=== PATIENT | female | born 1980 ===

== ENCOUNTER 2024-05-13 09:05 | Day surgery (SDC) | payer OTHER ==
[2024-05-01 13:53] LABS: HEMATOCRIT 40.1 % (36.0-45.00); HEMOGLOBIN 13.5 g/dL (12.0-15.00); MEAN CELL VOLUME 83.7 fL (80.00-100.00); MEAN CORPUSCULAR HEMOGLOBIN 28.3 pg (27.00-32.0); MEAN CORPUSCULAR HGB CONC 33.8 g/dl (32.0-36.0); PLATELET COUNT 254 K/uL (150-450); RED BLOOD COUNT 4.78 M/uL (4.00-6.00)
[2024-05-01 14:24] LABS: INR 1.01; PARTIAL THROMBOPLASTIN TIME 30.7 SECONDS (22.0-34.0)
[2024-05-01 14:26] LABS: ALBUMIN 4.2 gm/dL (3.4-5.0); BILIRUBIN TOTAL 0.89 mg/dL (0.3-1.2); CALCIUM 9.3 mg/dL (8.5-10.1); CREATININE SERUM 0.56 mg/dL (0.55-1.02); GFR 117.6; GLOBULINA 3.2 G/DL (2.4-3.5); POTASSIUM 3.96 mEq/L (3.5-5.1); TOTAL PROTEIN 7.4 gm/dL (6.4-8.2)
[~2024-05-13 09:05] MED LIST: LEVOTHYROXINE25 MCG PO
== END 2024-05-13 14:05 | disposition home or self-care (01) ==
LOC: AMB-ERCP 09:05
PROVIDERS: ATTEND Internal Medicine
DX: C49.A2 Gastrointestinal stromal tumor of stomach (principal); K31.89 Other diseases of stomach and duodenum; D37.1 Neoplasm of uncertain behavior of stomach; R93.3 Abnormal findings on diagnostic imaging of other parts of digestive tract; K29.70 Gastritis, unspecified, without bleeding; K57.92 Diverticulitis of intestine, part unspecified, without perforation or abscess without bleeding